=== PATIENT | female | born 1955 | race Caucasian/White ===

== ENCOUNTER 2024-11-15 14:00 | Observation (INO) | payer MEDICARE ==
[2024-11-15] MEDS: SODIUM CHLORIDE 0.9% 1,000 ML IV ONE (14:33)
[2024-11-15 14:47] LABS: Basophils # (A) 0.03 10*3/uL (0.00-0.10); Basophils % (A) 0.3 %; Eosinophils # (A) 0.09 10*3/uL (0.04-0.35); Eosinophils % (A) 0.9 %; HCT 40.9 % (37.2-46.3); HGB 13.9 g/dL (12.0-15.0); Lymphocytes # (A) 1.31 10*3/uL (0.90-5.00); Lymphocytes % (A) 12.4 %; MCH 30.2 pg (27.0-32.0); MCV 88.9 fL (80.0-97.0); Monocytes # (A) 0.61 10*3/uL (0.20-1.00); Monocytes % (A) 5.8 %; Neutrophils # (A) 8.49 10*3/uL (1.80-7.70); Neutrophils % (A) 80.3 %; Platelet Count 325 10*3/uL (140-440); RDW 12.1 % (11.5-14.5); WBC 10.56 10*3/uL (4.50-10.00)
[2024-11-15 14:48] LABS: ALT 21 U/L (4-34); AST 33 U/L (14-36); African American GFR (CKD) >90 (>60 ml/min/1.73 sqM); Alkaline Phosphatase 90 U/L (38-126); Anion Gap 8 mmol/L; Blood Urea Nitrogen 20 mg/dL (7-17); Calcium 9.1 mg/dL (8.4-10.2); Carbon Dioxide 24 mmol/L (22-30); Chloride 105 mmol/L (98-107); Glucose 126 mg/dL (74-99); Non-African American GFR(CKD) >90 (>60 ml/min/1.73 sqM); Potassium 4.4 mmol/L (3.5-5.1); Sodium 137 mmol/L (137-145); Total Bilirubin 0.9 mg/dL (0.2-1.3); Total Protein 6.8 g/dL (6.3-8.2)
[2024-11-15] MEDS: MORPHINE SULFATE 4 MG/ML SYRINGE IVP STA ×2 (14:48→16:21)
--- NOTE | 2024-11-15 16:14 | XR ---
EXAMINATION TYPE: XR knee complete LT, XR tibia fibula LT, XR ankle complete bilateral DATE OF EXAM: 11/15/2024 3:36 PM COMPARISON: None CLINICAL INDICATION: Female, 69 years old with history of left knee/tibfib/ankle pain post fall; PHH, pain TECHNIQUE: XR knee complete LT, XR tibia fibula LT, XR ankle complete bilateral Frontal and lateral views of the leg. Frontal lateral and oblique views of the bilateral ankles. Frontal lateral and oblique views of the knee. FINDINGS: Fracture line through the proximal fibula which extends inferiorly. There is minimal displacement. Vi sualized portions of the patella, proximal tibial plateau and femur appear intact. Soft tissue swelli ng around the lateral malleolus. Remote injury to the deltoid ligament. No fracture of the foot ident ified. Mild degeneration changes of the joints visualized with joint space tearing osteophyte formati on of the left lower extremity. A fabella is present. Right ankle demonstrates no evidence of fracture. There is mild soft tissue swelling along the latera l malleolus. IMPRESSION: 1. Acute nondisplaced fracture through the proximal fibula with extension inferiorly into the diaphy sis. No evidence of fracture of the tibia or femur patella. Visualized osseous structures of the foot appear intact. 2. No evidence of fracture involving the right ankle. [facility], , 11/15/2024 4:12 PM
--- NOTE | 2024-11-15 16:15 | XR ---
EXAMINATION TYPE: XR chest 1V portable DATE OF EXAM: 11/15/2024 3:36 PM COMPARISON: None CLINICAL INDICATION: Female, 69 years old with history of fall; [facility] TECHNIQUE: XR chest 1V portable Frontal view of the chest. FINDINGS: Lungs/Pleura: There is no evidence of pleural effusion, focal consolidation, or pneumothorax. Pulmonary vascularity: Unremarkable. Heart/mediastinum: Cardiomediastinal silhouette is unremarkable. Musculoskeletal: No acute osseous pathology. Other findings: None IMPRESSION: No acute cardiopulmonary disease/process. [facility], , 11/15/2024 4:13 PM
--- NOTE | 2024-11-15 16:16 | XR ---
EXAMINATION TYPE: XR pelvis AP view DATE OF EXAM: 11/15/2024 3:37 PM COMPARISON: None CLINICAL INDICATION: Female, 69 years old with history of pain; pain [facility] TECHNIQUE: XR pelvis AP view, examined in a single projection. FINDINGS: There is no evidence of fracture or dislocation. There is no soft tissue abnormality. No a bnormal calcifications are present. The spine appears intact. The hips appear intact. No significant degeneration. IMPRESSION: No acute osseous pathology. [facility], , 11/15/2024 4:13 PM
[2024-11-15] MEDS ORDERED: ONDANSETRON 4 MG/2 ML VIAL IVP PRN (17:54)
[2024-11-15] MEDS ORDERED: NALOXONE 0.4 MG/ML 1 ML VIAL IV PRN (17:54)
[2024-11-15] MEDS: HYDROmorphone 0.5 MG/0.5 ML SYRINGE IVP STA ×2 (18:05→20:20)
[2024-11-15] MEDS: KETOROLAC 15 MG/ML 1 ML VIAL IVP PRN (18:06)
[2024-11-15] MEDS: SODIUM CHLORIDE 0.9% 1,000 ML IV STA (18:07)
--- NOTE | 2024-11-15 18:47 | ED ---
General Adult HPI - General Chief complaint: Fall Stated complaint: Fall Time Seen by Provider: 11/15/24 17:05 Source: patient, EMS, RN notes reviewed, old records reviewed Mode of arrival: EMS Limitations: no limitations - History of Present Illness Initial comments: Patient is a 69-year-old female who presents emergency department after a fall at home. Patient was coming down the stairs carrying laundry when she tripped down the last 1 or 2 steps and landed on the landing. Somehow landed on her left leg and knee and it twisted on her. Is currently complaining of bilateral ankle pain, left worse than right as well as left knee pain. Denies any back pain, hip pain, head pain. Did not hit her head or lose consciousness. Is not on blood thinners. Denies any upper extremity pain or injury. Did not faint. States she lost her balance which is why she fell. Has no other acute complaints at this time. Presents for further evaluation. - Related Data Home Medications Medication Instructions Recorded Confirmed No Known Home Medications 11/15/24 11/15/24 Allergies Allergy/AdvReac Type Severity Reaction Status Date / Time No Known Allergies Allergy Verified 11/15/24 17:27 Review of Systems ROS Statement: Those systems with pertinent positive or pertinent negative responses have been documented in the HPI. Review of Systems: CONST: Denies fever EYES: Denies blurry vision ENT: Denies nasal congestion C/V: Denies Chest pain RESP: Denies shortness of breath GI: Denies abdominal pain : Denies dysuria SKIN: Denies rash. MSK: Endorses left knee pain, left ankle pain, right ankle pain. NEURO: Denies headache ROS Other: All systems not noted in ROS Statement are negative. Past Medical History Past Medical History: No Reported History History of Any Multi-Drug Resistant Organisms: None Reported Past Surgical History: Hysterectomy Past Psychological History: No Psychological Hx Reported Smoking Status: Never smoker Past Alcohol Use History: Occasional Past Drug Use History: None Reported General Exam - General Exam Comments Initial Comments: General: Appears in no moderate distress secondary to pain. HEAD: Normal with no signs of head trauma. Negative Rouse sign. Negative raccoon eyes. EYES: PERRLA, EOMI, conjunctiva normal, no discharge. Pupils are 3 mm and equal bilaterally. ENT: Hearing grossly intact, normal oropharynx. RESPIRATORY: Clear breath sounds bilaterally. No wheezes, rales, or rhonchi. C/V: Regular rate and rhythm. S1 and S2 auscultated, no edema, peripheral pulses 2+ and intact throughout ABD: Abd is soft, nontender, nondistended EXT: Decreased range of motion of the left knee secondary to pain. Normal range of motion of the bilateral ankles however pain with movement. Swelling over the lateral aspect of the left knee with tenderness primarily over this lateral aspect. Neurovascular intact throughout bilateral lower extremities. Mild tenderness palpation over the lateral aspect of both ankles. No hip tenderness to palpation. Stable pelvis. No spinal tenderness to palpation of the cervical, thoracic, lumbar spines. SKIN: No rashes or lesions observed on exposed skin. NEURO: Alert and oriented x 4. GCS 15. Neurovascular intact throughout. Limitations: no limitations Course Vital Signs 11/15/24 11/15/24 11/15/24 14:01 15:40 20:02 Temperature 97.9 F 97.8 F Pulse Rate 86 96 87 Respiratory 20 20 22 Rate Blood Pressure 168/83 161/92 151/91 O2 Sat by Pulse 99 95 99 Oximetry Medical Decision Making - Medical Decision Making Was pt. sent in by a medical professional or institution (, PA, [employer], urgent care, hospital, or longterm...) When possible be specific @ -No Did you speak to anyone other than the patient for history (EMS, parent, family, police, friend...)? What history was obtained from this source @ -No Did you review nursing and triage notes (agree or disagree)? Why? @ -I reviewed and agree with nursing and triage notes Were old charts reviewed (outside hosp., previous admission, EMS record, old EKG, old radiological studies, urgent care reports/EKG's, longterm records)? Report findings @ -No old charts were reviewed Differential Diagnosis (chest pain, altered mental status, abdominal pain women, abdominal pain men, vaginal bleeding, weakness, fever, dyspnea, syncope, headache, dizziness, GI bleed, back pain, seizure, CVA, palpatations, mental health, musculoskeletal)? @ -Differential Musculoskeletal Muscular strain, contusion, ligament sprain, fracture, arthritis, septic arthritis, bursitis, cellulitis, muscle spasm, nerve compression, DVT, arterial occlusion, herpes zoster, electrolyte abnormality, tumor.... This is not meant to be in all inclusive list EKG interpreted by me (3pts min.). @ -As above X-rays interpreted by me (1pt min.). @ -Chest x-ray pelvis x-ray negative for any obvious acute injury. Right ankle x-ray negative for any obvious acute injury. Left leg x-ray remarkable for left proximal fibula fracture that is nondisplaced. CT interpreted by me (1pt min.). @ -CT of the left lower extremity shows no obvious ankle fracture however the left proximal fibula fracture is redemonstrated as well as a left tibial plateau fracture. U/S interpreted by me (1pt. min.). @ -None done What testing was considered but not performed or refused? (CT, X-rays, U/S, labs)? Why? @ -None What meds were considered but not given or refused? Why? @ -None Did you discuss the management of the patient with other professionals (professionals i.e. , PA, [employer], lab, RT, psych nurse, clinical social worker, windows phone developer, teacher, transit authority police officer, upper caser)? Give summary @ -Discussed with on-call orthopedics, Dr. Cruz who accepted the admission. Was in agreement with plan for CT imaging of the left lower extremity. Was smoking cessation discussed for >3mins.? @ -No Was critical care preformed (if so, how long)? @ -No Were there social determinants of health that impacted care today? How? (Homele ssness, low income, unemployed, alcoholism, drug addiction, transportation, low edu. Level, literacy, decrease access to med. care, alf, rehab)? @ -No Was there de-escalation of care discussed even if they declined (Discuss DNR or withdrawal of care, Hospice)? DNR status @ -No What co-morbidities impacted this encounter? (DM, HTN, Smoking, COPD, CAD, Cancer, CVA, ARF, Chemo, Hep., AIDS, mental health diagnosis, sleep apnea, morbid obesity)? @ -None Was patient admitted / discharged? Hospital course, mention meds given and route, prescriptions, significant lab abnormalities, going to OR and other pertinent info. @ -Patient presents with a mechanical fall resulting in bilateral leg pain, primarily the right ankle as well as the left knee and left ankle. Vital signs within acceptable limits. Presented in a cervical collar but she has no spine pain and would like it removed I believe this is reasonable. Cervical spine is cleared by myself. No indication for CT brain.Vital signs are within acceptable limits. Basic labs obtained and we will obtain x-rays of the lower extremities as well as pelvis and chest. She was in agreement this plan. X-rays remarkable for proximal fibula fracture. Remainder the x-ray is unremarkable. Laboratory studies unremarkable. Patient was placed in a knee immobilizer and given crutches. We did attempt ambulation after I updated her. She was unable to stand due to the right ankle sprain as well as being required to be nonweightbearing on the left lower extremity as well. Therefore we will admit the patient as she is an unsafe discharge home. Because she is being admitted, I will obtain CT imaging of the left lower extremity to rule out Maisonneuve fracture as well as tibial plateau fracture. This was discussed with the admitting orthopedic surgeon, Dr. Cruz who was in agreement the plan. CT imaging did reveal a tibial plateau fracture. Patient made n.p.o. after midnight. I did update her regarding this. She expressed understanding. Undiagnosed new problem with uncertain prognosis? @ -No Drug Therapy requiring intensive monitoring for toxicity (Heparin, Nitro, Insulin, Cardizem)? @ -No Were any procedures done? @ -No Diagnosis/symptom? @ -Left proximal fibula fracture, left tibial plateau fracture, fall, Right ankle sprain Acute, or Chronic, or Acute on Chronic? @ -Acute Uncomplicated (without systemic symptoms) or Complicated (systemic symptoms)? @ -Complicated Side effects of treatment? @ -No Exacerbation, Progression, or Severe Exacerbation? @ -No Poses a threat to life or bodily function? How? (Chest pain, [place], [place], pneumonia, PE, COPD, DKA, ARF, appy, cholecystitis, CVA, Diverticulitis, Homicidal, Suicidal, threat to staff... and all critical care pts) @ -Potentially, yes - Lab Data Result diagrams: 11/15/24 14:20 11/15/24 14:20 Lab Results 11/15/24 11/15/24 Range/Units 14:20 14:20 WBC 10.56 H (4.50-10.00) 10*3/uL RBC 4.60 (4.10-5.20) 10*6/uL Hgb 13.9 (12.0-15.0) g/dL Hct 40.9 (37.2-46.3) % MCV 88.9 (80.0-97.0) fL MCH 30.2 (27.0-32.0) pg MCHC 34.0 (32.0-37.0) g/dL Plt Count 325 (140-440) 10*3/uL MPV 10.0 (9.5-12.2) fL Immature Gran % (Auto) 0.3 % Neutrophils % 80.3 % Lymphocytes % 12.4 % Monocytes % 5.8 % Eosinophils % 0.9 % Basophils % 0.3 % Immature Gran # 0.03 (0.00-0.04) 10*3/uL Neutrophils # 8.49 H (1.80-7.70) 10*3/uL Lymphocytes # 1.31 (0.90-5.00) 10*3/uL Monocytes # 0.61 (0.20-1.00) 10*3/uL Eosinophils # 0.09 (0.04-0.35) 10*3/uL Basophils # 0.03 (0.00-0.10) 10*3/uL Sodium 137 (137-145) mmol/L Potassium 4.4 (3.5-5.1) mmol/L Chloride 105 (98-107) mmol/L Carbon Dioxide 24 (22-30) mmol/L Anion Gap 8 mmol/L BUN 20 H (7-17) mg/dL Creatinine 0.65 (0.52-1.04) mg/dL Est GFR (CKD-EPI)AfAm >90 (>60 ml/min/1.73 sqM) Est GFR (CKD-EPI)NonAf >90 (>60 ml/min/1.73 sqM) Glucose 126 H (74-99) mg/dL Calcium 9.1 (8.4-10.2) mg/dL Total Bilirubin 0.9 (0.2-1.3) mg/dL AST 33 (14-36) U/L ALT 21 (4-34) U/L Alkaline Phosphatase 90 (38-126) U/L Total Protein 6.8 (6.3-8.2) g/dL Albumin 4.0 (3.5-5.0) g/dL Disposition Clinical Impression: Fall, Fibula fracture, Tibial plateau fracture, left, Right ankle sprain Disposition: ADMITTED IP TO THIS HOSP Condition: Stable Time of Disposition: 17:50
--- NOTE | 2024-11-15 20:01 | CT ---
EXAMINATION TYPE: CT lower leg LT wo con DATE OF EXAM: 11/15/2024 7:24 PM COMPARISON: . Extremity radiograph same day. CLINICAL INDICATION: Female, 69 years old with history of pain PHH, left proximal fibular fx TECHNIQUE: Axial images were obtained of the CT lower leg LT wo con, Additional coronal and sagittal reformatted images and soft tissue and bone window were obtained for review. 3-D reconstruction was c reated on a separate workstation. Contrast used: mL of , (None if empty) Oral contrast used: (None if empty) CT DLP: 205.8 mGycm, Automated exposure control for dose reduction was used. FINDINGS: The patella and visualized femur are intact. The tibial plateau demonstrates depression def ormity of the posterior aspect of the medial tibial plateau with fracture identified with 1 mm depres linden. Additional oblique fracture of the proximal diaphysis of the fibula with minimal there is assoc iated soft tissue swelling present. IMPRESSION: 1. Acute fracture of the posterior medial tibial plateau with 1 mm depression. 2. Acute oblique fracture of the proximal fibula diaphysis. [facility], , 11/15/2024 7:58 PM
[2024-11-16] MEDS: HYDROmorphone 0.5 MG/0.5 ML SYRINGE IVP PRN (04:00)
[2024-11-16] MEDS: ENOXAPARIN 40 MG/0.4 ML SYRINGE SQ SCH ×2 (07:43→15:00)
[2024-11-16 08:16] LABS: Basophils # (A) 0.05 X 10*3/uL (0.00-0.10); Basophils % (A) 0.6 %; Eosinophils # (A) 0.09 X 10*3/uL (0.04-0.35); HCT 38.2 % (37.2-46.3); HGB 12.5 g/dL (12.0-15.0); Lymphocytes # (A) 1.96 X 10*3/uL (0.90-5.00); Lymphocytes % (A) 22.6 %; MCH 29.7 pg (27.0-32.0); MCHC 32.7 g/dL (32.0-37.0); MCV 90.7 FL (80.0-97.0); Mean Platelet Volume 10.4 FL (9.5-12.2); Monocytes # (A) 0.79 X 10*3/uL (0.20-1.00); Monocytes % (A) 9.1 %; NRBC Per 100 WBC 0 X 10*3/uL (0.00-0.01); Neutrophils # (A) 5.77 X 10*3/uL (1.80-7.70); Neutrophils % (A) 66.6 %; Platelet Count 314 X 10*3/uL (140-440); RBC 4.21 X 10*6/uL (4.10-5.20); RDW 12.3 % (11.5-14.5); WBC 8.67 X 10*3/uL (4.50-10.00)
[2024-11-16 08:25] LABS: Blood Urea Nitrogen 17.5 mg/dL (9.0-27.0); Glucose 91 mg/dL (70-110)
[2024-11-16 08:26] LABS: ALT 17 U/L (8-44); AST 21 U/L (13-35); Albumin 3.7 g/dL (3.8-4.9); Albumin/Globulin Ratio 1.68 Ratio (1.60-3.17); Alkaline Phosphatase 81 U/L (41-126); Calcium 8.6 mg/dL (8.7-10.3); Carbon Dioxide 21.2 mmol/L (21.6-31.8); Chloride 108 mmol/L (96-109); Globulin 2.2 g/dL (1.6-3.3); Sodium 140 mmol/L (135-145); Total Bilirubin 0.5 mg/dL (0.3-1.2); Total Protein 5.9 g/dL (6.2-8.2)
--- NOTE | 2024-11-16 10:36 | P.HPOR ---
History of Present Illness H&P Date: 11/16/24 The patient is a very pleasant previously healthy 69-year-old female who is presently admitted under my care after sustaining a ground-level fall yesterday. According to the patient she lost her balance and fell down several stairs. She was immediately painful in the left knee and right ankle. She was unable to ambulate and was brought to the ER. In the ER x-rays showed a left proximal fibula fracture. A CT scan was obtained which reconfirmed the left proximal fibula fracture as well as identifying a small posteromedial tibial plateau fracture. She was also clinically diagnosed with a right ankle sprain. Due to her pain, bilateral lower extremity injuries, and an inability to ambulate she was admitted. This morning she is complaining mostly of pain in her left knee. She says it has improved since she has been given pain medications. She is normally a community ambulator without assistive device. 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 Past Medical History Past Medical History: No Reported History History of Any Multi-Drug Resistant Organisms: None Reported Past Surgical History: Hysterectomy Additional Past Surgical History / Comment(s): colonoscopy Past Psychological History: No Psychological Hx Reported Smoking Status: Never smoker Past Alcohol Use History: Occasional Past Drug Use History: None Reported Medications and Allergies Home Medications Medication Instructions Recorded Confirmed Type No Known Home Medications 11/15/24 11/15/24 History Allergies Allergy/AdvReac Type Severity Reaction Status Date / Time No Known Allergies Allergy Verified 11/15/24 17:27 Physical Examination Patient is resting comfortably in her bed. She is alert and able to answer questions. She demonstrates nonlabored breathing with symmetric chest expansion. Her head is normocephalic and atraumatic. Her bilateral upper extremities are without deformity and are nontender. Her abdomen is soft and nonobese. She has palpable peripheral pulses. Left lower extremity: There is mild swelling over the left knee but no discoloration of the skin. She has no pain with passive range of motion of the left hip. There is a mild left knee effusion. She is globally tender over the left knee. She can perform a straight leg raise. Both her thigh and calf are soft. She has a palpable left dorsalis pedis pulse. Her foot is warm and well- perfused. Sensation is intact to light touch in the distribution of the superficial peroneal nerve, deep peroneal nerve, and tibial nerve. She is able to actively plantarflex and dorsiflex her ankle and her toes. Right lower extremity: On inspection of the right leg there is minimal swelling and no discoloration of the skin. She has no pain with passive range of motion of the right hip or knee. She is globally tender over the ankle with the area of maximal tenderness over the lateral ankle ligaments. She has mild pain with passive range of motion of the ankle. She has minimal bony tenderness over the ankle. Her right foot is warm and well-perfused with brisk capillary refill. Results AP pelvis: X-rays of the pelvis show no obvious fractures Left knee and left tibia and fibula x-rays: Plain films of the left knee and tibia and fibula show a minimally displaced proximal fibula fracture. There are no obvious fractures in the tibial plateau or distal femur on plain films. The joint appears well reduced. Bilateral ankle x-rays: X-rays of both ankles show mild medial compartment arthritis and dorsal talar neck spurs but no obvious fractures CT scan left tibia and fibula: CT scan of the left knee, tibia, and ankle show a small minimally displaced posteromedial tibial plateau fracture and a left extra-articular proximal fibula fracture. There are no step-offs at the tibial plateau and no evidence of joint subluxation. - Labs Labs: Abnormal Lab Results - Last 24 Hours (Table) 11/15/24 11/15/24 11/16/24 Range/Units 14:20 14:20 03:14 WBC 10.56 H (4.50-10.00) 10*3/uL Neutrophils # 8.49 H (1.80-7.70) 10*3/uL Carbon Dioxide 21.2 L (21.6-31.8) mmol/L BUN 20 H (7-17) mg/dL BUN/Creatinine Ratio 25.00 H (12.00-20.00) Ratio Glucose 126 H (74-99) mg/dL Calcium 8.6 L (8.7-10.3) mg/dL Total Protein 5.9 L (6.2-8.2) g/dL Albumin 3.7 L (3.8-4.9) g/dL H & H 11/15/24 11/16/24 Range/Units 14:20 03:14 Hgb 13.9 12.5 (12.0-15.0) g/dL Hct 40.9 38.2 (37.2-46.3) % Result Diagrams: 11/16/24 03:14 11/16/24 03:14 Assessment and Plan Assessment: Left minimally displaced posteromedial tibial plateau fracture and a left proximal fibular shaft fracture Ankle sprain Plan: I recommended nonsurgical treatment of both the patient's left knee injury and her right ankle injury. She can weight-bear as tolerated on both of her extremities. A hinged knee brace was ordered for her left knee. A tall cam boot was ordered for her right ankle. Physical therapy has been consulted for gait training and discharge recommendations. Social work is also been consulted for assistance with discharge planning. Time with Patient: Greater than 30
[2024-11-16] MEDS: HYDROcodone/APAP 5-325MG 1 EACH TAB PO PRN (10:41)
[2024-11-16] MEDS ORDERED: SENNOSIDES 8.6 MG TAB PO PRN (14:20)
[2024-11-16] MEDS ORDERED: ACETAMINOPHEN TAB 325 MG TAB PO PRN (14:20)
--- NOTE | 2024-11-16 14:22 | P.CONS ---
History of Present Illness - Reason for Consult Consult date: 11/16/24 - History of Present Illness This is a pleasant 69-year-old female with past medical history significant for hysterectomy colonoscopy. No other reported history. Patient comes into the ER after a fall at home she was coming downstairs care long as she tripped down the last 1-2 steps and landed on the landing. When she landed her left leg and knee twisted on her. She was comes into the ER complaining of bilateral ankle pain left worse than right as well as left knee pain. She did not hit her head or lose consciousness. She lost her balance and fell she does not report any loss of consciousness dizziness presyncope. Patient had multiple images taken which reveals an acute nondisplaced fracture throughout the proximal fibula with extension inferiorly into the diaphysis. No evidence of fracture of the tibia o r femur or patella. There is visualized osseous structures of the foot appear intact. No evidence of fracture involving the right ankle. Pelvis x-ray reveals no acute osseous pathology. Chest x-ray reveals no acute cardiopulmonary process. Patient was admitted under orthopedic surgery with a consult placed to medicine. They have ordered a CT of the left lower leg which reveals an acute fracture of the posterior medial tibial plateau with 1 mm depression. There is acute oblique fracture of the proximal fibula diaphysis. Initial bulk reveals white blood cell count of 10.56, BUN of 20 creatinine 0.65. Patient was started on DVT prophylaxis and IV pain medications. PT OT will be consulted. REVIEW OF SYSTEMS: CONSTITUTIONAL: No fever, no malaise, no fatigue. HEENT: No recent visual problems or hearing problems. Denied any sore throat. CARDIOVASCULAR: No chest pain, orthopnea, PND, no palpitations, no syncope. PULMONARY: No shortness of breath, no cough, no hemoptysis. GASTROINTESTINAL: No diarrhea, no nausea, no vomiting, no abdominal pain. NEUROLOGICAL: No headaches, no weakness, no numbness. HEMATOLOGICAL: Denies any bleeding or petechiae. GENITOURINARY: Denies any burning micturition, frequency, or urgency. MUSCULOSKELETAL/RHEUMATOLOGICAL: Denies any joint pain, swelling, or any muscle pain. ENDOCRINE: Denies any polyuria or polydipsia. The rest of the 14-point review of systems is negative. PHYSICAL EXAMINATION: GENERAL: The patient is alert and oriented x3, not in any acute distress. Well developed, well nourished. HEENT: Pupils are round and equally reacting to light. EOMI. No scleral icterus. No conjunctival pallor. Normocephalic, atraumatic. No pharyngeal erythema. No thyromegaly. CARDIOVASCULAR: S1 and S2 present. No murmurs, rubs, or gallops. PULMONARY: Chest is clear to auscultation, no wheezing or crackles. ABDOMEN: Soft, nontender, nondistended, normoactive bowel sounds. No palpable organomegaly. MUSCULOSKELETAL: No joint swelling or deformity. EXTREMITIES: No cyanosis, clubbing, or pedal edema. NEUROLOGICAL: Gross neurological examination did not reveal any focal deficits. SKIN: No rashes. Assessment and plan Fall secondary to losing balance patient has a minimally displaced acute fracture of the left posterior medial tibial plateau additionally there is an acute proximal fibular shaft fracture Reactive leukocytosis Right ankle sprain DVT prophylaxis: [facility] Full code Orthopedics has evaluated patient and she is a nonsurgical candidate at this time patient has a a hinged knee brace for the left knee and a tall cam boot for her right ankle. Patient is awaiting evaluation by physical therapy and Occupational Therapy. She would likely need discharge to subacute rehab. Patient does take care of her who is a dialysis patient. Recommend incentive spirometer 10 x an hour while awake Bowel regimen has been added while patient is using narcotics. the impression and plan of care has been dictated by Yue Starr Nurse Practitioner as directed. Dr. Phoebe MD I have performed a history and physical examination and medical decision making of this patient, discussed the same with the dictator, and agree with the dictators assessment and plan as written, documented as a scribe. Based on total visit time, I have performed more than 50% of this visit. Past Medical History Past Medical History: No Reported History History of Any Multi-Drug Resistant Organisms: None Reported Past Surgical History: Hysterectomy Additional Past Surgical History / Comment(s): colonoscopy Past Psychological History: No Psychological Hx Reported Smoking Status: Never smoker Past Alcohol Use History: Occasional Past Drug Use History: None Reported Medications and Allergies Home Medications Medication Instructions Recorded Confirmed Type No Known Home Medications 11/15/24 11/15/24 History Allergies Allergy/AdvReac Type Severity Reaction Status Date / Time No Known Allergies Allergy Verified 11/15/24 17:27 Physical Exam Vitals: Vital Signs Temp Pulse Pulse Resp BP BP Pulse Ox 11/16/24 07:00 97.8 F 80 18 123/76 95 11/16/24 00:35 97.6 F 95 18 122/69 95 11/15/24 22:34 98.9 F 87 18 147/81 97 11/15/24 21:26 98.1 F 68 20 149/74 100 11/15/24 20:02 97.8 F 87 22 151/91 99 11/15/24 15:40 96 20 161/92 95 11/15/24 14:01 97.9 F 86 20 168/83 99 Intake and Output 11/15/24 11/16/24 11/16/24 22:59 06:59 14:59 Intake Total 1460 Balance 1460 Intake: Intake, IV Titration 900 Amount Sodium Chloride 0.9% 1, 900 000 ml @ 75 mls/hr IV . [id number] STA Rx#:[id number] Oral 560 Other: # Voids 3 1 Weight 74.843 kg Results CBC & Chem 7: 11/16/24 03:14 11/16/24 03:14 Labs: Abnormal Lab Results - Last 24 Hours (Table) 11/15/24 11/15/24 11/16/24 Range/Units 14:20 14:20 03:14 WBC 10.56 H (4.50-10.00) 10*3/uL Neutrophils # 8.49 H (1.80-7.70) 10*3/uL Carbon Dioxide 21.2 L (21.6-31.8) mmol/L BUN 20 H (7-17) mg/dL BUN/Creatinine Ratio 25.00 H (12.00-20.00) Ratio Glucose 126 H (74-99) mg/dL Calcium 8.6 L (8.7-10.3) mg/dL Total Protein 5.9 L (6.2-8.2) g/dL Albumin 3.7 L (3.8-4.9) g/dL Assessment and Plan Time with Patient: Less than 30
[2024-11-17] MEDS: DOCUSATE 100 MG CAP PO SCH (08:25)
--- NOTE | 2024-11-18 09:51 | P.PN ---
Subjective Progress Note Date: 11/17/24 This is a pleasant 69-year-old female with past medical history significant for hysterectomy colonoscopy. No other reported history. Patient comes into the ER after a fall at home she was coming downstairs care long as she tripped down the last 1-2 steps and landed on the landing. When she landed her left leg and knee twisted on her. She was comes into the ER complaining of bilateral ankle pain left worse than right as well as left knee pain. She did not hit her head or lose consciousness. She lost her balance and fell she does not report any loss of consciousness dizziness presyncope. Patient had multiple images taken which reveals an acute nondisplaced fracture throughout the proximal fibula with extension inferiorly into the diaphysis. No evidence of fracture of the tibia or femur or patella. There is visualized osseous structures of the foot appear intact. No evidence of fracture involving the right ankle. Pelvis x-ray reveals no acute osseous pathology. Chest x-ray reveals no acute cardiopulmonary process. Patient was admitted under orthopedic surgery with a consult placed to medicine. They have ordered a CT of the left lower leg which reveals an acute fracture of the posterior medial tibial plateau with 1 mm depression. There is acute oblique fracture of the proximal fibula diaphysis. Initial bulk reveals white blood cell count of 10.56, BUN of 20 creatinine 0.65. Patient was started on DVT prophylaxis and IV pain medications. PT OT will be consulted. 11/17/2024 Patient is eval seen in follow-up with the medical floor. She continues to report significant discomfort especially to the left leg while she is up ambulating. She was unable to tolerate the hinged knee brace as the strap ran right across where the tibial fracture was. Patient also has a cam boot for the right ankle sprain. She worked with physical therapy states he did not go well mostly due to the significant pain however she is concerned with returning home and the plan is for discharge to subacute rehabilitation. Authorization for your [facility] is currently pending. Patient has no other acute complaints she is urinating without difficulty and passing gas. She is not having any shortness of breath. REVIEW OF SYSTEMS: CONSTITUTIONAL: No fever, no malaise, no fatigue. HEENT: No recent visual problems or hearing problems. Denied any sore throat. CARDIOVASCULAR: No chest pain, orthopnea, PND, no palpitations, no syncope. PULMONARY: No shortness of breath, no cough, no hemoptysis. GASTROINTESTINAL: No diarrhea, no nausea, no vomiting, no abdominal pain. NEUROLOGICAL: No headaches, no weakness, no numbness. PHYSICAL EXAMINATION: GENERAL: The patient is alert and oriented x3, not in any acute distress. Well developed, well nourished. HEENT: Pupils are round and equally reacting to light. EOMI. No scleral icterus. No conjunctival pallor. Normocephalic, atraumatic. No pharyngeal erythema. No thyromegaly. CARDIOVASCULAR: S1 and S2 present. No murmurs, rubs, or gallops. PULMONARY: Chest is clear to auscultation, no wheezing or crackles. ABDOMEN: Soft, nontender, nondistended, normoactive bowel sounds. No palpable organomegaly. MUSCULOSKELETAL: No joint swelling or deformity. EXTREMITIES: No cyanosis, clubbing, or pedal edema. NEUROLOGICAL: Gross neurological examination did not reveal any focal deficits. SKIN: No rashes. Assessment and plan Fall secondary to losing balance patient has a minimally displaced acute fracture of the left posterior medial tibial plateau additionally there is an acute proximal fibular shaft fracture Reactive leukocytosis Right ankle sprain DVT prophylaxis: [facility] Full code Orthopedics has evaluated patient and she is a nonsurgical candidate at this time patient has a knee immobilizer for the tibial plateau fracture and a tall cam boot for her right ankle. Insurance authorization is pending for discharge daily [employer] Recommend incentive spirometer 10 x an hour while awake Bowel regimen has been added while patient is using narcotics. Cecil was increased to 2 tablets every 4 hours by orthopedics. the impression and plan of care has been dictated by Yue Starr, Nurse Practitioner as directed. Dr. Phoebe MD I have performed a history and physical examination and medical decision making of this patient, discussed the same with the dictator, and agree with the dictators assessment and plan as written, documented as a scribe. Based on total visit time, I have performed more than 50% of this visit. Objective - Vital Signs Vital signs: Vital Signs Temp 97.9 F 11/17/24 07:01 Pulse 70 11/17/24 07:01 Resp 18 11/17/24 07:01 BP 112/65 11/17/24 07:01 Pulse Ox 94 L 11/17/24 07:01 FiO2 Intake & Output 11/16/24 11/17/24 11/17/24 18:59 06:59 18:59 Intake Total 450 340 Balance 450 340 Intake: Oral 450 340 Other: Voiding Method Bedpan Bedpan # Voids 1 2 - Labs CBC & Chem 7: 11/16/24 03:14 11/16/24 03:14 Assessment and Plan Time with Patient: Less than 30
--- NOTE | 2024-11-18 15:24 | P.PN ---
Progress Note - Text Patient seen this morning. She had multiple complaints. She appears comfortable when examined today. Her left leg is minimally swollen and there are no obvious deformities. There is only mild pain with PROM of the left knee and ankle today. Her foot is warm and well-perfused. Motor and sensory function are intact. Awaiting placement for rehab and to have Mily fit her for a brace on her left knee that is comfortable.
--- NOTE | 2024-11-18 15:54 | P.PN ---
Subjective Progress Note Date: 11/18/24 This is a pleasant 69-year-old female with past medical history significant for hysterectomy colonoscopy. No other reported history. Patient comes into the ER after a fall at home she was coming downstairs care long as she tripped down the last 1-2 steps and landed on the landing. When she landed her left leg and knee twisted on her. She was comes into the ER complaining of bilateral ankle pain left worse than right as well as left knee pain. She did not hit her head or lose consciousness. She lost her balance and fell she does not report any loss of consciousness dizziness presyncope. Patient had multiple images taken which reveals an acute nondisplaced fracture throughout the proximal fibula with extension inferiorly into the diaphysis. No evidence of fracture of the tibia or femur or patella. There is visualized osseous structures of the foot appear intact. No evidence of fracture involving the right ankle. Pelvis x-ray reveals no acute osseous pathology. Chest x-ray reveals no acute cardiopulmonary process. Patient was admitted under orthopedic surgery with a consult placed to medicine. They have ordered a CT of the left lower leg which reveals an acute fracture of the posterior medial tibial plateau with 1 mm depression. There is acute oblique fracture of the proximal fibula diaphysis. Initial bulk reveals white blood cell count of 10.56, BUN of 20 creatinine 0.65. Patient was started on DVT prophylaxis and IV pain medications. PT OT will be consulted. 11/17/2024 Patient is eval seen in follow-up with the medical floor. She continues to report significant discomfort especially to the left leg while she is up ambulating. She was unable to tolerate the hinged knee brace as the strap ran right across where the tibial fracture was. Patient also has a cam boot for the right ankle sprain. She worked with physical therapy states he did not go well mostly due to the significant pain however she is concerned with returning home and the plan is for discharge to subacute rehabilitation. Authorization for your [employer] [facility] is currently pending. Patient has no other acute complaints she is urinating without difficulty and passing gas. She is not having any shortness of breath. 11/14/2024 Patient is evaluated in follow-up in the medical floor. She continues to report significant pain in difficulty with ambulation and working with physical therapy . She has the cam boot as well as the knee immobilizer at her bedside. She is currently pending insurance authorization for discharge to [facility]. He has not had a bowel movement yet and she does report that she is fearful of getting up to the bedside commode to have a bowel movement. Her abdomen is soft and nontender she has normal active bowel sounds and she states that she is passing gas. Remains afebrile and and has oxygen saturations at 95% on room air. She remains in normal sinus rhythm and her blood pressure is 124/73. REVIEW OF SYSTEMS: CONSTITUTIONAL: No fever, no malaise, no fatigue. HEENT: No recent visual problems or hearing problems. Denied any sore throat. CARDIOVASCULAR: No chest pain, orthopnea, PND, no palpitations, no syncope. PULMONARY: No shortness of breath, no cough, no hemoptysis. GASTROINTESTINAL: No diarrhea, no nausea, no vomiting, no abdominal pain. NEUROLOGICAL: No headaches, no weakness, no numbness. PHYSICAL EXAMINATION: GENERAL: The patient is alert and oriented x3, not in any acute distress. Well developed, well nourished. HEENT: Pupils are round and equally reacting to light. EOMI. No scleral icterus. No conjunctival pallor. Normocephalic, atraumatic. No pharyngeal erythema. No thyromegaly. CARDIOVASCULAR: S1 and S2 present. No murmurs, rubs, or gallops. PULMONARY: Chest is clear to auscultation, no wheezing or crackles. ABDOMEN: Soft, nontender, nondistended, normoactive bowel sounds. No palpable organomegaly. MUSCULOSKELETAL: No joint swelling or deformity. EXTREMITIES: No cyanosis, clubbing, or pedal edema. NEUROLOGICAL: Gross neurological examination did not reveal any focal deficits. SKIN: No rashes. Assessment and plan Fall secondary to losing balance patient has a minimally displaced acute fracture of the left posterior medial tibial plateau additionally there is an acute proximal fibular shaft fracture Reactive leukocytosis Right ankle sprain DVT prophylaxis: [facility] Full code Orthopedics has evaluated patient and she is a nonsurgical candidate at this time patient has a knee immobilizer for the tibial plateau fracture and a tall cam boot for her right ankle. Insurance authorization is pending for discharge daily [employer] Recommend incentive spirometer 10 x an hour while awake Bowel regimen has been added while patient is using narcotics. Marshall was increased to 2 tablets every 4 hours by orthopedics. Is medically clear for discharge to rehab once insurance authorization has been obtained. the impression and plan of care has been dictated by Yue Starr, Nurse Practitioner as directed. Dr. Phoebe MD I have performed a history and physical examination and medical decision making of this patient, discussed the same with the dictator, and agree with the dictators assessment and plan as written, documented as a scribe. Based on total visit time, I have performed more than 50% of this visit. Objective - Vital Signs Vital signs: Vital Signs Temp 97.9 F 11/18/24 14:00 Pulse 96 11/18/24 14:00 Resp 16 11/18/24 14:00 BP 124/73 11/18/24 14:00 Pulse Ox 95 11/18/24 14:00 FiO2 Intake & Output 11/17/24 11/18/24 11/18/24 18:59 06:59 18:59 Intake Total 400 Balance 400 Intake: Oral 400 Other: Voiding Method Bedpan Bedpan # Voids 4 1 1 # Bowel Movements 1 - Labs CBC & Chem 7: 11/16/24 03:14 11/16/24 03:14 Assessment and Plan Time with Patient: Less than 30
[2024-11-19 08:26] LABS: BUN/Creat Ratio 17.75 Ratio (12.00-20.00); Blood Urea Nitrogen 14.2 mg/dL (9.0-27.0); Carbon Dioxide 22.6 mmol/L (21.6-31.8); Chloride 106 mmol/L (96-109); Glucose 92 mg/dL (70-110); Potassium 4.1 mmol/L (3.5-5.5); Sodium 141 mmol/L (135-145)
--- NOTE | 2024-11-19 13:27 | P.PN ---
Subjective Progress Note Date: 11/19/24 The patient is better today, but she still is having significant pain in her left leg. She localizes the pain to the distal leg. She is sitting up in a chair. Objective - Vital Signs Vital signs: Vital Signs Temp 98.1 F 11/19/24 07:00 Pulse 77 11/19/24 07:00 Resp 15 11/19/24 07:00 BP 128/78 11/19/24 07:00 Pulse Ox 97 11/19/24 07:00 FiO2 Intake & Output 11/18/24 11/19/24 11/19/24 18:59 06:59 18:59 Intake Total 400 200 Balance 400 200 Intake: Oral 400 200 Other: Voiding Method Bedpan # Voids 1 1 # Bowel Movements 1 - Exam Resting comfortably in a chair. She is in NO distress. LEFT LE: The knee immobilizer is open, but under her leg. On inspection there is no swelling or discoloration of the skin. She has NO knee effusion. Her calf is soft and compressible. She has no pain with PROM of the ankle or toes. SILT SPN/DPN/Tibial nerves. There is a palpable DP pulse. RIGHT LE: CAM boot is on - Labs CBC & Chem 7: 11/16/24 03:14 11/19/24 03:42 Labs: Abnormal Lab Results - Last 24 Hours (Table) 11/19/24 Range/Units 03:42 Anion Gap 12.40 H (4.00-12.00) mmol/L Assessment and Plan Assessment: LEFT LE: small, minimally displaced posterior tibial plateau fracture, proximal fibula fracture RIGHT LE: ankle sprain Plan: The patient's left LE is completely benign today. There is minimal to no swelling, she has no knee effusion, her ankle has no pain with PROM and her calf is soft. I recommended continued use of a knee immobilizer on the left and a boot on the right. We discussed getting an MRI as an outpatient if she continues to have pain. Awaiting approval for d/c to rehab, hopefully today.
--- NOTE | 2024-11-19 14:51 | P.DS ---
Providers Date of admission: 11/15/24 17:56 Attending physician: Ja Cruz Consults: 11/15/24 17:54 Consult Physician Routine Consulting Provider: Darnell Pina Consult Reason/Comments: medical management Do you want consulting provider notified?: Yes Primary care physician: Michael Villalpando [facility] Course: The patient was admitted from the ED after she sustained a fall resulting in injuries to her left knee (minimally displaced tibial plateau fracture and proximal fibula) and her right ankle (ankle sprain). She had xrays and a CT scan done in the ED. She was admitted to orthopaedics due to her having bilateral lower extremity injuries and an inability to care for herself. Internal medicine assisted with medical management. Based on her imaging it was determined that she didn't need surgery. She worked with PT and it was determined she needed discharge to SNF/Rehab. She was seen 11/19 and was doing better. Her exam was benign and she was cleared for discharge. Patient Condition at Discharge: Good Plan - Discharge Summary Discharge Rx Participant: Yes New Discharge Prescriptions: New Docusate [Colace] 100 mg PO DAILY cap HYDROcodone/APAP 5-325MG [Antimony 5-325] 2 each PO Q4HR PRN #6 tab PRN Reason: Pain Sennosides [Senokot] 8.6 mg PO DAILY PRN tab PRN Reason: Constipation Acetaminophen Tab [Tylenol] 650 mg PO Q6HR PRN tab PRN Reason: Fever And/ Or Pain Enoxaparin [Lovenox] 40 mg SQ DAILY each Discharge Medication List Acetaminophen Tab [Tylenol] 650 mg PO Q6HR PRN tab 11/17/24 [Rx] Docusate [Colace] 100 mg PO DAILY cap 11/17/24 [Rx] Enoxaparin [Lovenox] 40 mg SQ DAILY each 11/17/24 [Rx] HYDROcodone/APAP 5-325MG [Antimony 5-325] 2 each PO Q4HR PRN #6 tab 11/17/24 [Rx] Sennosides [Senokot] 8.6 mg PO DAILY PRN tab 11/17/24 [Rx] Follow up Appointment(s)/Referral(s): Michael Villalpando MD [Primary Care Provider] - 1-2 days Ja Cruz MD [Medical Doctor] - 1 Week Activity/Diet/Wound Care/Special Instructions: 1. Weight bear as tolerated on your RIGHT LEG in a tall CAM boot 2. Weight bear as tolerated on your LEFT LEG in a knee immobilizer 3. You can remove both your CAM boot and knee immobilizer when resting and sleeping 4. Ice and elevate 5. Take pain medications as prescribed 6. Follow-up in the office in 7 days for repeat x-rays Discharge Disposition: TRANSFER TO SNF/ECF
[2024-11-19 16:19] VITALS: BP 113/71; PULSE 78; RESP 17; TEMP 98.4
--- NOTE | 2024-11-22 15:22 | P.PN ---
Subjective Progress Note Date: 11/19/24 This is a pleasant 69-year-old female with past medical history significant for hysterectomy colonoscopy. No other reported history. Patient comes into the ER after a fall at home she was coming downstairs care long as she tripped down the last 1-2 steps and landed on the landing. When she landed her left leg and knee twisted on her. She was comes into the ER complaining of bilateral ankle pain left worse than right as well as left knee pain. She did not hit her head or lose consciousness. She lost her balance and fell she does not report any loss of consciousness dizziness presyncope. Patient had multiple images taken which reveals an acute nondisplaced fracture throughout the proximal fibula with extension inferiorly into the diaphysis. No evidence of fracture of the tibia or femur or patella. There is visualized osseous structures of the foot appear intact. No evidence of fracture involving the right ankle. Pelvis x-ray reveals no acute osseous pathology. Chest x-ray reveals no acute cardiopulmonary process. Patient was admitted under orthopedic surgery with a consult placed to medicine. They have ordered a CT of the left lower leg which reveals an acute fracture of the posterior medial tibial plateau with 1 mm depression. There is acute oblique fracture of the proximal fibula diaphysis. Initial bulk reveals white blood cell count of 10.56, BUN of 20 creatinine 0.65. Patient was started on DVT prophylaxis and IV pain medications. PT OT will be consulted. 11/17/2024 Patient is eval seen in follow-up with the medical floor. She continues to report significant discomfort especially to the left leg while she is up ambulating. She was unable to tolerate the hinged knee brace as the strap ran right across where the tibial fracture was. Patient also has a cam boot for the right ankle sprain. She worked with physical therapy states he did not go well mostly due to the significant pain however she is concerned with returning home and the plan is for discharge to subacute rehabilitation. Authorization for your [employer] is currently pending. Patient has no other acute complaints she is urinating without difficulty and passing gas. She is not having any shortness of breath. 11/18/2024 Patient is evaluated in follow-up in the medical floor. She continues to report significant pain in difficulty with ambulation and working with physical thera py. She has the cam boot as well as the knee immobilizer at her bedside. She is currently pending insurance authorization for discharge to [facility]. He has not had a bowel movement yet and she does report that she is fearful of getting up to the bedside commode to have a bowel movement. Her abdomen is soft and nontender she has normal active bowel sounds and she states that she is passing gas. Remains afebrile and and has oxygen saturations at 95% on room air. She remains in normal sinus rhythm and her blood pressure is 124/73. 11/19/2024 Patient is seen in follow-up with no acute overnight issues noted. Patient continues to have significant amount of pain and difficulty with ambulating working on awaiting for insurance authorization to approve ECF. Patient continues with knee immobilizer of the left and conservative management. Patient is medically stable once authorization is approved for ECF. Patient is afebrile with no reports of chest pain or shortness of breath. Patient is tolerating diet with no reported nausea or vomiting. Recommend to continue with bowel regimen and pain management per orthopedics. Patient also has been instructed to follow-up with primary care provider on discharge as well. REVIEW OF SYSTEMS: CONSTITUTIONAL: No fever, no malaise, no fatigue. HEENT: No recent visual problems or hearing problems. Denied any sore throat. CARDIOVASCULAR: No chest pain, orthopnea, PND, no palpitations, no syncope. PULMONARY: No shortness of breath, no cough, no hemoptysis. GASTROINTESTINAL: No diarrhea, no nausea, no vomiting, no abdominal pain. NEUROLOGICAL: No headaches, no weakness, no numbness. PHYSICAL EXAMINATION: GENERAL: The patient is alert and oriented x3, not in any acute distress. Well developed, well nourished. HEENT: Pupils are round and equally reacting to light. EOMI. No scleral icterus. No conjunctival pallor. Normocephalic, atraumatic. No pharyngeal erythema. No thyromegaly. CARDIOVASCULAR: S1 and S2 present. No murmurs, rubs, or gallops. PULMONARY: Chest is clear to auscultation, no wheezing or crackles. ABDOMEN: Soft, nontender, nondistended, normoactive bowel sounds. No palpable organomegaly. MUSCULOSKELETAL: No joint swelling or deformity. EXTREMITIES: No cyanosis, clubbing, or pedal edema. NEUROLOGICAL: Gross neurological examination did not reveal any focal deficits. SKIN: No rashes. Assessment and plan Fall secondary to losing balance patient has a minimally displaced acute fracture of the left posterior medial tibial plateau additionally there is an acute proximal fibular shaft fracture Reactive leukocytosis Right ankle sprain DVT prophylaxis: Lovenox Full code Orthopedics has evaluated patient and she is a nonsurgical candidate at this time patient has a knee immobilizer for the tibial plateau fracture and a tall cam boot for her right ankle. Insurance authorization remains pending for discharge to [facility] Recommend to continue with bowel regimen as needed Continue pain management per orthopedics Patient is medically clear for discharge to rehab once insurance authorization has been obtained. Thank you kindly for this consultation. We will continue to follow with orlacho lópez during hospitalization. The impression and plan of care has been dictated by Fela Grady, Nurse Practitioner as directed. Dr. Phoebe MD I have performed a history and examination and MDM of this patient, discussed the same with the dictator, and agree with the dictator's assessment and plan as written ,documented as a scribe. Based on total visit time, I have performed more than 50% of the visit. Objective - Vital Signs Vital signs: Vital Signs Temp 98.1 F 11/19/24 07:00 Pulse 77 11/19/24 07:00 Resp 15 11/19/24 07:00 BP 128/78 11/19/24 07:00 Pulse Ox 97 11/19/24 07:00 FiO2 Intake & Output 11/18/24 11/19/24 11/19/24 18:59 06:59 18:59 Intake Total 400 200 Balance 400 200 Intake: Oral 400 200 Other: Voiding Method Bedpan # Voids 1 1 # Bowel Movements 1 - Labs CBC & Chem 7: 11/16/24 03:14 11/19/24 03:42 Labs: Abnormal Lab Results - Last 24 Hours (Table) 11/19/24 Range/Units 03:42 Anion Gap 12.40 H (4.00-12.00) mmol/L
== END 2024-11-19 16:54 ==
LOC: EC 14:00 → 4SSUR 17:56
PROVIDERS: ADMIT Orthopaedic Surgery; ATTEND Orthopaedic Surgery
DX: S82.142A Displaced bicondylar fracture of left tibia, initial encounter for closed fracture (principal); S82.432A Displaced oblique fracture of shaft of left fibula, initial encounter for closed fracture; S93.401A Sprain of unspecified ligament of right ankle, initial encounter; W10.8XXA Fall (on) (from) other stairs and steps, initial encounter; D72.829 Elevated white blood cell count, unspecified
CPT/HCPCS: 96376 ×4; 96372 ×3; 96374; 96375; 99285; 36415; 97530 ×5; 97163; 97535 ×2; 97166; 80053 ×2; 80048; 85025 ×2; 73610; 72170; 73590; 73562; 71045; 73700; G0378 ×5; L1830 ×2; J2270; J1650 ×3; J1885 ×3; J1171 ×4